=== PATIENT | female | born 1960 | race Caucasian/White ===

== ENCOUNTER 2024-11-23 10:23 | Outpatient (CLI) | payer OTHER | END 2024-11-23 10:40 | disposition home or self-care (01) | LOC: TOM 10:23 | PROVIDERS: ATTEND Orthopaedic Surgery | DX: M21.769 Unequal limb length (acquired), unspecified tibia and fibula (principal); M54.50 Low back pain, unspecified; M25.551 Pain in right hip; M25.552 Pain in left hip ==